=== PATIENT | male | born 1930 | race Caucasian/White ===

== ENCOUNTER 2019-11-03 17:57 | Emergency (ER) | payer MEDICARE ==
[2019-11-03 18:10] VITALS: RESP 18; TEMP 98.1
[2019-11-03] MEDS ORDERED: LIDOCAINE 1%-EPI 1:100,000 20 ML VIAL SQ STA (18:29)
[2019-11-03] MEDS ORDERED: DIPH,PERTUS(ACELL)TETVAC-LF 0.5 ML VIAL IM ONE (18:29)
--- NOTE | 2019-11-03 18:32 | ED ---
General Adult HPI - General Chief complaint: Fall Stated complaint: fall/head lac Time Seen by Provider: 11/03/19 18:19 Source: patient, family, RN notes reviewed Mode of arrival: wheelchair Limitations: no limitations - History of Present Illness Initial comments: 89-year-old male presents to the emergency department for a chief complaint of head injury. Patient states that about an hour prior to arrival he slipped and fell. States he was wearing his house slippers which do not have any traction. States he is not supposed to wear these because of this. However he put them on today and walked across the linoleum and slipped. Patient fell backwards. He states he basically sat down but did hit his head against the edge of the table. States this caused a laceration because he noticed bleeding. Patient did not have any loss of consciousness. He denies head injury. Patient denies any blood thinner use. Denies neck pain back pain buttock pain or hip pain. Denies any other injuries.Patient has no other complaints at this time including shortness of breath, chest pain, abdominal pain, nausea or vomiting, headache, or visual changes. - Related Data Allergies Allergy/AdvReac Type Severity Reaction Status Date / Time No Known Allergies Allergy Verified 11/03/19 18:04 Review of Systems ROS Statement: Those systems with pertinent positive or pertinent negative responses have been documented in the HPI. ROS Other: All systems not noted in ROS Statement are negative. 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 Absent: atraumatic (Patient has a 3 cm laceration noted to the occipital scalp) Eye exam: Present: normal appearance, PERRL, EOMI. Absent: scleral icterus, conjunctival injection, periorbital swelling ENT exam: Present: normal exam, normal oropharynx, mucous membranes moist, TM's normal bilaterally, normal external ear exam Neck exam: Present: normal inspection, full ROM. Absent: tenderness, meningismus, lymphadenopathy Respiratory exam: Present: normal lung sounds bilaterally. Absent: respiratory distress, wheezes, rales, rhonchi, stridor Cardiovascular Exam: Present: regular rate, normal rhythm, normal heart sounds. Absent: systolic murmur, diastolic murmur, rubs, gallop, clicks GI/Abdominal exam: Present: soft, normal bowel sounds. Absent: distended, tenderness, guarding, rebound, rigid Extremities exam: Present: other (Patient has small abrasion noted to left anterior knee as well as right forearm. However no lacerations. Full range of motion in all extremities. No evidence for significant trauma.) Back exam: Absent: CVA tenderness (R), CVA tenderness (L), vertebral tenderness, other (No contusions noted) Neurological exam: Present: alert, normal gait Course Vital Signs 11/03/19 18:06 Temperature 98.1 F Pulse Rate 71 Respiratory 18 Rate Blood Pressure 170/78 O2 Sat by Pulse 94 L Oximetry Procedures - Laceration Laceration #1 Consent Obtained: verbal consent Indication: laceration Site: scalp Size (cm): 3 Description: linear Depth: simple, single layer Anesthetic Used: lidocaine 1%, with epi Anesthesia Technique: local infiltration Amount (mls): 5 Pre-repair: wound explored, irrigated extensively (with saline pressure irrigation) Type of Sutures: other (rufus) Number of Sutures: 6 Technique: simple, interrupted Patient Tolerated Procedure: well, no complications Medical Decision Making - Medical Decision Making 89-year-old male patient presents for a slip and fall. Patient slipped on linoleum keny hitting his head. Fall was purely mechanical. He did not sustain any other injuries. There are no evidence of trauma of the back or buttock. He does have swelling abrasions noted of the left anterior knee and right forearm however full range of motion in these extremities. The patient has a 3 cm laceration to the back of the head. This was cleaned thoroughly with saline pressure irrigation. 6 rufus were used to approximate the wound. CT brain and C-spine shows no acute fracture or dislocation in the cervical spine. No acute intracranial hemorrhage, mass effect, or midline shift. Discussed return parameters with patient as well as returning in 10 days for staple removal. Discussed return if he has any other worsening symptoms. Otherwise he will follow-up with primary care in 1-2 days for recheck. Disposition Clinical Impression: Head injury, Laceration Disposition: HOME SELF-CARE Condition: Good Instructions (If sedation given, give patient instructions): Head Injury (ED), Staple Care (ED) Additional Instructions: Please keep the area clean. Monitor for signs of infection such as spreading or streaking redness and return if these occur or if you have any other worsening symptoms. Return in 10 days for staple removal. Follow up with primary care in 1-2 days for a wound recheck. Is patient prescribed a controlled substance at d/c from ED?: No Referrals: Barb Ashley MD [REFERRING] - 1-2 days Time of Disposition: 20:03
--- NOTE | 2019-11-03 19:49 | CT ---
EXAMINATION TYPE: CT brain arcadio win DATE OF EXAM: 11/03/2019 COMPARISON: 09/14/2010 HISTORY: Fall today with posterior head injury. CT DLP: 1395.5 mGycm Automated exposure control for dose reduction was used. TECHNIQUE: CT scan of the head and cervical spine are performed without contrast. FINDINGS: Focal soft tissue swelling is noted high over the posterior occiput, without underlying sku ll fracture. The calvarium is intact. There is no acute intracranial hemorrhage, mass effect, or midl ine shift identified. The ventricles and sulci are within normal limits in size. The globes are int act and the visualized sinuses are clear. Cervical spine is visualized in its entirety from C1 through upper thoracic levels and demonstrates s atisfactory alignment without evidence of acute fracture or dislocation. Prevertebral soft tissue ap pears within normal limits. 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 The C1-C2 a rticulation is unremarkable. IMPRESSION: 1. There is no acute fracture or dislocation evident in the cervical spine. 2. No acute intracranial hemorrhage, mass effect, or midline shift is seen.
[2019-11-03 20:42] VITALS: BP 164/72; PULSE 75
== END 2019-11-03 20:42 | disposition home or self-care (01) ==
LOC: EC 17:57
DX: S01.01XA Laceration without foreign body of scalp, initial encounter (principal); S80.212A Abrasion, left knee, initial encounter; S50.811A Abrasion of right forearm, initial encounter; Z23 Encounter for immunization; Z95.2 Presence of prosthetic heart valve; W01.0XXA Fall on same level from slipping, tripping and stumbling without subsequent striking against object, initial encounter; Y93.01 Activity, walking, marching and hiking
CPT/HCPCS: 12002; 70450; 72125; 90471; 90715; 99283